=== PATIENT | male | born 1940 | race Caucasian/White ===

== ENCOUNTER 2017-02-11 13:36 | Emergency (ER) | payer OTHER ==
[2017-02-11] MEDS ORDERED: NS 1,000 ML IV ONE (14:17)
[2017-02-11 15:06] LABS: PLATELET COUNT 193 10^3/uL (150-400)
--- NOTE | 2017-02-11 16:06 | EDPHY ---
H & P Time Seen by Provider: 02/11/17 14:14 HPI/ROS: HPI Diarrhea. 76-year-old male by private vehicle. This patient reports that in early January he had 2 days of watery diarrhea followed by 2-3 days of bloody diarrhea. He describes this as blood mixed with brown stool. He reports that this then resolved. He reports that he felt fine from roughly January 15 up until today when he again had a couple of episodes of brown stool diarrhea followed by bloody diarrhea. No associated abdominal pain. No fever. He has not been on antibiotics. No history of foreign travel or change in diet. No ill contacts. He reports he last had a colonoscopy through the [place] about 5 years ago. He was told he had polyps and a colonoscopy was otherwise unremarkable. ROS: Constitutional: No fever, no chills. No weakness. Respiratory: No cough. No shortness of breath. Cardiac: No chest pain, no palpitations. Gastrointestinal: No abdominal pain, no vomiting, as above. Genitourinary: No hematuria. No dysuria or increased frequency with urination. Musculoskeletal: No back pain. No neck pain. No myalgias or arthralgias. Skin: No rashes. Neurological: No headache. No focal weakness or altered sensation. Past medical history: He is not on anticoagulation. He denies any significant past medical history. His primary care has been through the [place]. Social history: Nonsmoker. No alcohol. Here by himself. Physical Exam: General Appearance: Alert, no distress. This patient is responding to questions appropriately and in full sentences. This patient appears well- hydrated and well-nourished. Eyes: Pupils equal and round no pallor or injection. No lid edema, erythema or injection. Respiratory: There are no retractions, lungs are clear to auscultation with good air movement bilaterally. Cardiovascular: Regular rate and rhythm. No murmur. Gastrointestinal: Abdomen is soft and nontender, no masses, bowel sounds normal. No focal tenderness at McBurney's point. No Guido sign. Neurological: Motor sensory function is grossly intact. Cranial nerves are normal. Gait is normal. Skin: Warm and dry, no rashes. Musculoskeletal: Neck is supple and nontender. Extremities are symmetrical. All joints range without pain or impingement. Psychiatric: No agitation. No depression. Database: EKG: Imaging: Procedures: Emergency department course: IV placed. Vital signs reviewed and are unremarkable. He is afebrile. He was started on IV normal saline with 500 cc to 1 L to be given over the next 1-2 hours. Blood work obtained. Stool studies ordered. 3:50 p.m., patient re-evaluated. Resting comfortably at this time. He is dressed and ready to go home. He has been up and ambulatory in the emergency department without any issues. I discussed admission for observation with him. He does not want to do this. He is requesting discharge. He has not been able to produce another stool for us. His blood work is unremarkable. He showed me a photograph of his bloody diarrhea. Showed mix brown stool in diluted toilet water. Repeat abdominal exam is soft, nontender nondistended. At this point in time I feel he is safe for discharge. He will be sent home with a stool collection kit. I discussed referral to Gastroenterology for a colonoscopy and further evaluation. Most importantly, strict return to emergency department precautions were reviewed thoroughly with him. His vital signs have remained normal throughout his emergency department stay. He was discharged in good condition. Differential Diagnosis: The differential diagnosis on this patient includes but is not limited to entero hemorrhagic E coli infection, diverticulosis, malignancy. Upper gastrointestinal bleeding unlikely. Coagulopathy unlikely. This represents a partial list of diagnoses considered. These considerations are based on history , physical exam, past history, reassessment and diagnostic testing. Smoking Status: Never smoked Constitutional: Initial Vital Signs Temperature (C) 37 C 02/11/17 13:56 Heart Rate 96 02/11/17 13:56 Respiratory Rate 20 02/11/17 13:56 Blood Pressure 139/100 H 02/11/17 13:56 O2 Sat (%) 94 02/11/17 13:56 O2 Delivery Mode Room Air Allergies/Adverse Reactions: No Known Allergies Allergy (Unverified 02/11/17 13:56) Home Medications: Medication Instructions Recorded Imodium A-D 02/11/17 Omeprazole 02/11/17 Medical Decision Making - Data Points Laboratory Results: Laboratory Results 02/11/17 14:50 02/11/17 14:50 02/11/17 02/11/17 14:50 14:50 WBC 5.39 10^3/uL 10^3/uL (3.80-9.50) RBC 5.17 10^6/uL 10^6/uL (4.40-6.38) Hgb 16.0 g/dL g/dL (13.7-17.5) Hct 44.3 % % (40.0-51.0) MCV 85.7 fL fL (81.5-99.8) MCH 30.9 pg pg (27.9-34.1) MCHC 36.1 g/dL g/dL (32.4-36.7) RDW 13.4 % % (11.5-15.2) Plt Count 193 10^3/uL 10^3/uL (150-400) MPV 8.1 fL L fL (8.7-11.7) Neut % (Auto) 63.3 % % (39.3-74.2) Lymph % (Auto) 18.4 % % (15.0-45.0) [place] % (Auto) 16.9 % H % (4.5-13.0) Eos % (Auto) 0.4 % L % (0.6-7.6) Baso % (Auto) 0.6 % % (0.3-1.7) Nucleat RBC Rel Count 0.0 % % (0.0-0.2) Absolute Neuts (auto) 3.42 10^3/uL 10^3/uL (1.70-6.50) Absolute Lymphs (auto) 0.99 10^3/uL L 10^3/uL (1.00-3.00) Absolute Monos (auto) 0.91 10^3/uL H 10^3/uL (0.30-0.80) Absolute Eos (auto) 0.02 10^3/uL L 10^3/uL (0.03-0.40) Absolute Basos (auto) 0.03 10^3/uL 10^3/uL (0.02-0.10) Absolute Nucleated RBC 0.00 10^3/uL 10^3/uL (0-0.01) Immature Gran % 0.4 % % (0.0-1.1) Immature Gran # 0.02 10^3/uL 10^3/uL (0.00-0.10) Sodium 140 mEq/L mEq/L (134-144) Potassium 4.0 mEq/L mEq/L (3.5-5.2) Chloride 102 mEq/L mEq/L (97-110) Carbon Dioxide 21 mEq/l L mEq/l (22-31) Anion Gap 17 mEq/L H mEq/L (8-16) BUN 11 mg/dL mg/dL (7-23) Creatinine 0.9 mg/dL mg/dL (0.7-1.3) Estimated GFR > 60 Glucose 83 mg/dL mg/dL (70-100) Calcium 9.1 mg/dL mg/dL (8.5-10.4) Total Bilirubin 0.8 mg/dL mg/dL (0.1-1.4) Conjugated Bilirubin 0.2 mg/dL mg/dL (0.0-0.5) Unconjugated Bilirubin 0.6 mg/dL mg/dL (0.0-1.1) AST 30 IU/L IU/L (17-59) ALT 34 IU/L IU/L (21-72) Alkaline Phosphatase 57 IU/L IU/L (38-126) Total Protein 7.5 g/dL g/dL (6.3-8.2) Albumin 4.3 g/dL g/dL (3.5-5.0) Medications Given: Discontinued Medications Sodium Chloride (Ns) 1,000 mls @ 0 mls/hr IV EDNOW ONE; Wide Open PRN Reason: Protocol Stop: 02/11/17 14:18 Last Admin: 02/11/17 14:48 Dose: 1,000 mls Departure - Departure Disposition: Home, Routine, Self-Care Clinical Impression: Bloody diarrhea Condition: Good Instructions: Acute Diarrhea (ED), Gastrointestinal Bleeding (ED) Additional Instructions: Read and follow provided instructions. Follow-up with your primary care physician or Gastroenterology within the next 1 -2 days. I feel you should get a colonoscopy as discussed. I have provided you with a referral to our gastroenterology group. If you do produce a bloody stool. You are sent home with a collection kit which can be then dropped off here at the hospital for analysis. You can use Pepto-Bismol as directed [id number] for diarrhea. Return to the emergency department immediately for abdominal pain, persistent bloody stool, straight blood from the rectum or other serious concerns. Referrals: [facility] [Other] - As per Instructions Kalpesh Amezcua MD [Medical Doctor] - As per Instructions
[2017-02-11 16:29] VITALS: BP 140/69; PULSE 69; RESP 18; TEMP 98.4; O2SAT 96
== END 2017-02-11 16:26 | disposition home or self-care (01) ==
PROC: 3E0337Z Introduction of Electrolytic and Water Balance Substance into Peripheral Vein, Percutaneous Approach (ICD-10-PCS; principal; 2017-02-11)
DX: R19.7 Diarrhea, unspecified (principal); E86.9 Volume depletion, unspecified